=== PATIENT | female | born 1980 | race Caucasian/White ===

== ENCOUNTER 2017-03-19 16:51 | Observation (INO) | payer OTHER ==
[~2017-03-19] VITALS: Ht 157.5 cm; Wt 48.0 kg
[2017-03-19 16:58] VITALS: BP 92/50; PULSE 70; RESP 16; TEMP 98.7; O2SAT 100
[2017-03-19] MEDS ORDERED: SODIUM CHLORID 0.9% 500 ML INJ 500 ML IV ONE ×2 (17:15→18:00)
--- NOTE | 2017-03-19 17:20 | PD ---
HPI Chief Complaint: Cardiac Complaint Time Seen by Provider: 17:06 Travel History International Travel<30 days: No Contact w/Intl Traveler<30days: No Traveled to known affect area: No History of Present Illness HPI 36-year-old female presents to emergency department complaining of chest pain radiating to her left arm and anxiety for about 45 minutes. States her chest pain is sharp and constant. Also says her left arm is numb. Patient states she does feel mildly short of breath and has some nausea. Patient states her pain is 10 out of 10. States that she was feeling anxious and believes she is having a panic attack. Patient states that she was given Librium and clonidine at [facility] which may have lowered her blood pressure. She is here with Marli, staff of [facility]. Patient denies recent travel, injuries, surgeries or any other medical issues. Patient denies any illicit drug use. She is currently taking Suboxone for detox. She is in detox for cocaine use. States she had an episode similar approximately one year ago and they gave her medication that had "an a and a D" and this resolved her symptoms. PFSH Past Medical History Anxiety: Yes Depression: Yes Insomnia: Yes ?: Not LMP: DEPO Past Surgical History Tonsillectomy: Yes Social History Alcohol Use: No Tobacco Use: Yes (1/2 PPD) Substance Use: Yes (HX COCAINE AND SUBOXONE ABUSE) Allergies-Medications (Allergen,Severity, Reaction): Coded Allergies: amoxicillin (Verified Allergy, Severe, Nausea/Vomiting, 03/19/17) azithromycin (Verified Allergy, Severe, Nausea/Vomiting, 03/19/17) clavulanic acid (Verified Allergy, Severe, Nausea/Vomiting, 03/19/17) doxycycline (Verified Allergy, Severe, Nausea/Vomiting, 03/19/17) latex (Verified Allergy, Severe, Rash, 03/19/17) Reported Meds & Prescriptions Reported Meds & Active Scripts Active Reported Trazodone (Trazodone HCl) 100 Mg Tablet 100 Mg PO HS Zoloft (Sertraline HCl) 50 Mg Tab 50 Mg PO DAILY Klonopin (Clonazepam) 0.5 Mg Tab 0.5 Mg PO BID Review of Systems Except as stated in HPI: all other systems reviewed are Neg Physical Exam Narrative GENERAL: Well-developed well-nourished in no apparent distress SKIN: Focused skin assessment warm/dry. HEAD: Atraumatic. Normocephalic. EYES: Pupils equal and round. No scleral icterus. No injection or drainage. ENT: No nasal bleeding or discharge. Mucous membranes pink and moist. NECK: Trachea midline. No JVD. CARDIOVASCULAR: Regular rate and rhythm. No murmur appreciated. RESPIRATORY: No accessory muscle use. Clear to auscultation. Breath sounds equal bilaterally. GASTROINTESTINAL: Abdomen soft, non-tender, nondistended. MUSCULOSKELETAL: No obvious deformities. No clubbing. No cyanosis. No edema. NEUROLOGICAL: Awake and alert. No obvious cranial nerve deficits. 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 Data Data Last Documented VS Vital Signs Date Time Temp Pulse Resp B/P (MAP) Pulse Ox O2 Delivery O2 Flow Rate FiO2 03/19/17 17:36 98 Room Air 03/19/17 17:36 16 03/19/17 16:58 98.7 70 92/50 (64) Orders Orders Electrocardiogram (03/19/17 ) Complete Blood Count With Diff (03/19/17 17:04) Basic Metabolic Panel (Bmp) (03/19/17 17:04) Ckmb (Isoenzyme) Profile (03/19/17 17:04) Troponin I (03/19/17 17:04) Chest, Single Ap (03/19/17 17:04) Iv Access Insert/Monitor (03/19/17 17:04) Ecg Monitoring (03/19/17 17:04) Oxygen Administration (03/19/17 17:04) Oximetry (03/19/17 17:04) Sodium Chlorid 0.9% 500 Ml Inj (Ns 500 M (03/19/17 17:15) Ondansetron Inj (Zofran Inj) (03/19/17 17:30) Sodium Chlorid 0.9% 500 Ml Inj (Ns 500 M (03/19/17 18:00) Cta Thor Abd Aorta W Iv C W3d (03/19/17 ) Iohexol 350 Inj (Omnipaque 350 Inj) (03/19/17 18:30) Ct Brain W/O Iv Contrast(Rout) (03/19/17 ) Admit Order (Ed Use Only) (03/19/17 19:42) Labs Laboratory Tests Test 03/19/17 17:05 White Blood Count 5.2 TH/MM3 Red Blood Count 4.32 MIL/MM3 Hemoglobin 12.1 GM/DL Hematocrit 36.2 % Mean Corpuscular Volume 83.7 FL Mean Corpuscular Hemoglobin 28.0 PG Mean Corpuscular Hemoglobin Concent 33.4 % Red Cell Distribution Width 14.0 % Platelet Count 210 TH/MM3 Mean Platelet Volume 8.0 FL Neutrophils (%) (Auto) 49.2 % Lymphocytes (%) (Auto) 35.6 % Monocytes (%) (Auto) 10.0 % Eosinophils (%) (Auto) 4.5 % Basophils (%) (Auto) 0.7 % Neutrophils # (Auto) 2.5 TH/MM3 Lymphocytes # (Auto) 1.8 TH/MM3 Monocytes # (Auto) 0.5 TH/MM3 Eosinophils # (Auto) 0.2 TH/MM3 Basophils # (Auto) 0.0 TH/MM3 CBC Comment DIFF FINAL Differential Comment Blood Urea Nitrogen 14 MG/DL Creatinine 0.83 MG/DL Random Glucose 64 MG/DL Calcium Level 8.3 MG/DL Sodium Level 141 MEQ/L Potassium Level 3.8 MEQ/L Chloride Level 109 MEQ/L Carbon Dioxide Level 24.6 MEQ/L Anion Gap 7 MEQ/L Estimat Glomerular Filtration Rate 77 ML/MIN Total Creatine Kinase 32 U/L Troponin I LESS THAN 0.02 NG/ML MDM Medical Decision Making Medical Screen Exam Complete: Yes Emergency Medical Condition: Yes Differential Diagnosis Panic attack versus acute MA versus angina versus anxiety CVA vs TIA Narrative Course 36-year-old female presents to emergency department complaining of chest pain radiating to her left arm and anxiety for about 45 minutes. States her chest pain is sharp and constant. Also says her left arm is numb. Patient states she does feel mildly short of breath and has some nausea. Patient states her pain is 10 out of 10. States that she was feeling anxious and believes she is having a panic attack. Patient states that she was given Librium and clonidine at [facility] which may have lowered her blood pressure. She is here with Marli, staff of [facility]. Patient denies recent travel, injuries, surgeries or any other medical issues. Patient denies any illicit drug use. She is currently taking Suboxone for detox. States she had an episode similar approximately one year ago and they gave her medication that had "an a and a D" and this resolved her symptoms. Vital signs- mild hypotension Normal saline bolus Physical exam findings- left arm weakness compared to rght with subjective ' numbness' EKG- noncontributory Labs-blood sugar 64, and she is given by mouth, repeat blood sugar Chest x-ray normal CTA- within normal limits CT Brain pending as of transfer to Dr. Gutiérrez. Admitting Information Admitting Physician Requests: Admit Condition: Stable Marli Mcintyre Mar 19, 2017 17:20
[2017-03-19] MEDS ORDERED: ONDANSETRON HCL 4 MG/2 ML VIAL IV PUSH ONE (17:30)
[2017-03-19 17:36] VITALS: RESP 16; O2SAT 97
--- NOTE | 2017-03-19 17:43 | RADRPT ---
EXAM DATE/TIME: 03/19/2017 17:17 [facility] COMPARISON: No previous studies available for comparison. INDICATIONS : Chest pain. MEDICAL HISTORY : None. SURGICAL HISTORY : None. ENCOUNTER: Initial ACUITY: 1 day PAIN SCORE: 6/10 LOCATION: Left upper chest FINDINGS: A single view of the chest demonstrates the lungs to be symmetrically aerated without evidence of mas s, infiltrate or effusion. The cardiomediastinal contours are unremarkable. Osseous structures are intact. CONCLUSION: Normal examination. Lee Busby MD on March 19, 2017 at 17:42 Board Certified Radiologist. This report was verified electronically.
[2017-03-19 17:55] LABS: AUTOMATED NEUTROPHIL # 2.5 TH/MM3 (1.8-7.7); BASOPHIL % 0.7 % (0.0-2.0); EOSINOPHIL # 0.2 TH/MM3 (0-0.4); EOSINOPHIL % 4.5 % (0.0-4.0); HEMATOCRIT 36.2 % (35.0-46.0); HEMO FLAGS DIFF FINAL; LYMPH % 35.6 % (9.0-44.0); LYMPHOCYTE # 1.8 TH/MM3 (1.0-4.8); MEAN CELL VOLUME 83.7 FL (80.0-100.0); MEAN CORPUSCULAR HGB CONC 33.4 % (32.0-36.0); NEUT % 49.2 % (16.0-70.0); PLATELET COUNT 210 TH/MM3 (150-450); RED BLOOD COUNT 4.32 MIL/MM3 (4.00-5.30); WHITE BLOOD COUNT 5.2 TH/MM3 (4.0-11.0)
[2017-03-19 18:02] LABS: ANION GAP 7 MEQ/L (5-15); BICARBONATE 24.6 MEQ/L (21.0-32.0); BLOOD UREA NITROGEN 14 MG/DL (7-18); CHLORIDE 109 MEQ/L (98-107); GLOMERULAR FILTRATION RATE 77 ML/MIN (>89); POTASSIUM 3.8 MEQ/L (3.5-5.1); SODIUM (NA) 141 MEQ/L (136-145)
[2017-03-19 18:07] LABS: CREATINE KINASE 32 U/L (26-192)
[2017-03-19] MEDS ORDERED: IOHEXOL 350 MG/ML 10 ML VIAL (for RAD DIAG) IVCONTRAST ONE (18:30)
--- NOTE | 2017-03-19 18:52 | RADRPT ---
EXAM DATE/TIME: 03/19/2017 18:17 [facility] COMPARISON: No previous studies available for comparison. INDICATIONS : Chest pain. Left sided weakness. IV CONTRAST: 75 cc Omnipaque 350 (iohexol) IV RADIATION DOSE: 4.01 CTDIvol (mGy) MEDICAL HISTORY : None SURGICAL HISTORY : None. ENCOUNTER: Initial ACUITY: 1 day PAIN SCALE: 6/10 LOCATION: chest TECHNIQUE: Volumetric scanning was performed using a multi-row detector CT scanner. The data was post processed with a variety of visualization algorithms including full volume maximum intensity projection, multi -planar sliding thin slab reformation, curved planar reformation, and surface rendering techniques. Using automated exposure control and adjustment of the mA and/or kV according to patient size, radiat ion dose was kept as low as reasonably achievable to obtain optimal diagnostic quality images. DICOM format image data is available electronically for review and comparison. FINDINGS: LUNGS: There is no consolidation or pneumothorax. No concerning pulmonary nodule is visualized. No pleural fluid is present. MEDIASTINUM: No abnormally enlarged lymph nodes by CT criteria. No axillary or hilar abnormalities are identified. ABDOMEN: The liver and spleen are free of focal defects. The gallbladder and pancreas demonstrate no abnormali ty. The adrenal glands are normal. The kidneys demonstrate no evidence of solid renal mass or hydrone phrosis. No free fluid or abdominal masses are identified. No para-aortic adenopathy is seen. PELVIS: No evidence of free fluid or pelvic mass. No abnormally enlarged inguinal or retroperitoneal lymph no jessika are present. The bladder is unremarkable. THORACIC AORTA: The thoracic aortic root is normal with normal branching of the great vessels. There is no evidence of aneurysm or dissection. ABDOMINAL AORTA: The aorta is normal in caliber without aneurysm or dissection. The renal arteries are patent bilater ally. The proximal celiac and superior mesenteric arteries are patent and normal in diameter. PELVIC VESSELS: The internal iliac and external iliac vessels are patent without aneurysm or stenosis. CONCLUSION: Normal examination. Lee Busby MD on March 19, 2017 at 18:49 Board Certified Radiologist. This report was verified electronically.
--- NOTE | 2017-03-19 19:13 | PD ---
Data Data Last Documented VS Vital Signs Date Time Temp Pulse Resp B/P (MAP) Pulse Ox O2 Delivery O2 Flow Rate FiO2 03/19/17 17:36 98 Room Air 03/19/17 17:36 16 03/19/17 16:58 98.7 70 92/50 (64) Orders Orders Electrocardiogram (03/19/17 ) Electrocardiogram (03/19/17 17:04) Complete Blood Count With Diff (03/19/17 17:04) Basic Metabolic Panel (Bmp) (03/19/17 17:04) Ckmb (Isoenzyme) Profile (03/19/17 17:04) Troponin I (03/19/17 17:04) Chest, Single Ap (03/19/17 17:04) Iv Access Insert/Monitor (03/19/17 17:04) Ecg Monitoring (03/19/17 17:04) Oxygen Administration (03/19/17 17:04) Oximetry (03/19/17 17:04) Sodium Chlorid 0.9% 500 Ml Inj (Ns 500 M (03/19/17 17:15) Ondansetron Inj (Zofran Inj) (03/19/17 17:30) Sodium Chlorid 0.9% 500 Ml Inj (Ns 500 M (03/19/17 18:00) Cta Thor Abd Aorta W Iv C W3d (03/19/17 ) Iohexol 350 Inj (Omnipaque 350 Inj) (03/19/17 18:30) Ct Brain W/O Iv Contrast(Rout) (03/19/17 ) Labs Laboratory Tests Test 03/19/17 17:05 White Blood Count 5.2 TH/MM3 Red Blood Count 4.32 MIL/MM3 Hemoglobin 12.1 GM/DL Hematocrit 36.2 % Mean Corpuscular Volume 83.7 FL Mean Corpuscular Hemoglobin 28.0 PG Mean Corpuscular Hemoglobin Concent 33.4 % Red Cell Distribution Width 14.0 % Platelet Count 210 TH/MM3 Mean Platelet Volume 8.0 FL Neutrophils (%) (Auto) 49.2 % Lymphocytes (%) (Auto) 35.6 % Monocytes (%) (Auto) 10.0 % Eosinophils (%) (Auto) 4.5 % Basophils (%) (Auto) 0.7 % Neutrophils # (Auto) 2.5 TH/MM3 Lymphocytes # (Auto) 1.8 TH/MM3 Monocytes # (Auto) 0.5 TH/MM3 Eosinophils # (Auto) 0.2 TH/MM3 Basophils # (Auto) 0.0 TH/MM3 CBC Comment DIFF FINAL Differential Comment Blood Urea Nitrogen 14 MG/DL Creatinine 0.83 MG/DL Random Glucose 64 MG/DL Calcium Level 8.3 MG/DL Sodium Level 141 MEQ/L Potassium Level 3.8 MEQ/L Chloride Level 109 MEQ/L Carbon Dioxide Level 24.6 MEQ/L Anion Gap 7 MEQ/L Estimat Glomerular Filtration Rate 77 ML/MIN Total Creatine Kinase 32 U/L Troponin I LESS THAN 0.02 NG/ML MDM Supervised Visit with BINA: Yes Narrative Course The history, exam, and medical decision-making in the associated mid-level provider note were completed with my assistance. I reviewed and agree with the findings presented. I attest that I had a [id number] encounter with the patient on the same day, and personally performed and documented my assessment and findings in the medical record. *My assessment and Findings: 36 year-old woman presents to the emergency department complaining of chest pain , states feels similar set anxiety attack in the past, this time associated with left arm numbness and tingling. 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 She looks overall well. Given the chest pain with stroke symptoms, concern for dissection however dissection study is negative. Patient still endorsing left arm weakness. Some concern for stroke. We'll check CT head, plan on admission for further evaluation and MRI. Condition: Stable Pal Tabares MD Mar 19, 2017 19:13
--- NOTE | 2017-03-19 19:36 | RADRPT ---
EXAM DATE/TIME: 03/19/2017 19:27 [facility] COMPARISON: No previous studies available for comparison. INDICATIONS : General weakness. RADIATION DOSE: 50.71 CTDIvol (mGy) MEDICAL HISTORY : Substance abuse. SURGICAL HISTORY : None. ENCOUNTER: Initial ACUITY: 1 day PAIN SCALE: 0/10 LOCATION: cranial TECHNIQUE: Multiple contiguous axial images were obtained of the head. Using automated exposure control and adj ustment of the mA and/or kV according to patient size, radiation dose was kept as low as reasonably a chievable to obtain optimal diagnostic quality images. DICOM format image data is available electro nically for review and comparison. FINDINGS: CEREBRUM: The ventricles are normal for age. No evidence of midline shift, mass lesion, hemorrhage or acute in farction. No extra-axial fluid collections are seen. POSTERIOR FOSSA: The cerebellum and brainstem are intact. The 4th ventricle is midline. The cerebellopontine angle i s unremarkable. EXTRACRANIAL: The visualized portion of the orbits is intact. SKULL: The calvaria is intact. No evidence of skull fracture. CONCLUSION: Normal examination. eLe Busby MD on March 19, 2017 at 19:34 Board Certified Radiologist. This report was verified electronically.
[2017-03-19] MEDS ORDERED: SENNOSIDES 8.6 MG TAB PO PRN (20:00)
[2017-03-19] MEDS ORDERED: BISACODYL 10 MG SUPP RECTAL PRN (20:00)
[2017-03-19] MEDS ORDERED: LACTULOSE SYRUP 20 GM/30 ML CUP PO PRN (20:00)
[2017-03-19] MEDS ORDERED: MAGNESIUM HYDROXIDE SUSP 30 ML CUP PO PRN (20:00)
[2017-03-19] MEDS ORDERED: ONDANSETRON HCL 4 MG/2 ML VIAL IVP PRN (20:00)
[2017-03-19] MEDS ORDERED: ACETAMINOPHEN 325 MG TAB PO PRN (20:00)
--- NOTE | 2017-03-19 20:01 | HHI.HP ---
[facility] Unknown Admission Diagnosis Focal weakness Diagnoses: (1) Chest pain Diagnosis: Principal (2) Left upper extremity numbness Diagnosis: Principal (3) Cocaine abuse Diagnosis: Principal (4) Dehydration Diagnosis: Principal (5) Tobacco abuse Diagnosis: Principal Travel History International Travel<30 Days: No Contact w/Intl Traveler <30 Da: No Traveled to Known Affected Are: No History of Present Illness This is a 36-year-old female with a PMH of Anxiety, Depression, Tobacco Abuse and Cocaine/Suboxone Abuse who was sent to the ER from [facility] for evaluation of chest pain and left arm numbness starting earlier tonight. Reports associated SOB and significant anxiety. On arrival, BP 92/50, HR 70, O2 sat 100% on RA, Afebrile. CBC unremarkable. Chemistry unremarkable except for GFR 67. Troponin 0.02. EKG with no acute ischemia. CXR normal. CTA Aorta normal. CT Head normal. While in the ER, patient with persistent complaints of chest pain and left upper extremity numbness, we were asked to admit for further evaluation. Review of Systems Except as stated in HPI: all other systems reviewed are Neg ROS: 14 point review of systems otherwise negative. Past Family Social History Past Medical History PMH: Anxiety, Depression, Tobacco Abuse and Cocaine/Suboxone Abuse Past Surgical History PAST SURGICAL HISTORY: Tonsillectomy Allergies: Coded Allergies: amoxicillin (Verified Allergy, Severe, Nausea/Vomiting, 03/19/17) azithromycin (Verified Allergy, Severe, Nausea/Vomiting, 03/19/17) clavulanic acid (Verified Allergy, Severe, Nausea/Vomiting, 03/19/17) doxycycline (Verified Allergy, Severe, Nausea/Vomiting, 03/19/17) latex (Verified Allergy, Severe, Rash, 03/19/17) Family History PAST FAMILY HISTORY: Reviewed. No h/o DM or CAD Social History PAST SOCIAL HISTORY: Negative for alcohol. Smokes 1/2ppd. Positive for Cocaine/Suboxone. Physical Exam Vital Signs Vital Signs Date Time Temp Pulse Resp B/P (MAP) Pulse Ox O2 Delivery O2 Flow Rate FiO2 03/19/17 17:36 98 Room Air 03/19/17 17:36 16 97 Room Air 03/19/17 16:58 98.7 70 16 92/50 (70) 100 Physical Exam PE: GENERAL: Middle-aged white female in no acute distress, resting comfortably. HEENT: PERRLA, EOMI. No scleral icterus or conjunctival pallor. No lid lag or facial droop. CARDIOVASCULAR: Regular rate and rhythm. No obvious murmurs to auscultation. No chest tenderness to palpation. RESPIRATORY: No obvious rhonchi or wheezing. Clear to auscultation. Breath sounds equal bilaterally. GASTROINTESTINAL: Abdomen soft, non-tender, nondistended. BS normal. MUSCULOSKELETAL: Extremities without clubbing, cyanosis, or edema. No obvious deformities. NEUROLOGICAL: Awake, alert and oriented x4. No focal neurologic deficits. Moving both upper and lower extremities spontaneously. Left arm weakness 3/5 Laboratory Laboratory Tests Test 03/19/17 17:05 White Blood Count 5.2 Red Blood Count 4.32 Hemoglobin 12.1 Hematocrit 36.2 Mean Corpuscular Volume 83.7 Mean Corpuscular Hemoglobin 28.0 Mean Corpuscular Hemoglobin Concent 33.4 Red Cell Distribution Width 14.0 Platelet Count 210 Mean Platelet Volume 8.0 Neutrophils (%) (Auto) 49.2 Lymphocytes (%) (Auto) 35.6 Monocytes (%) (Auto) 10.0 Eosinophils (%) (Auto) 4.5 Basophils (%) (Auto) 0.7 Neutrophils # (Auto) 2.5 Lymphocytes # (Auto) 1.8 Monocytes # (Auto) 0.5 Eosinophils # (Auto) 0.2 Basophils # (Auto) 0.0 CBC Comment DIFF FINAL Differential Comment Blood Urea Nitrogen 14 Creatinine 0.83 Random Glucose 64 Calcium Level 8.3 Sodium Level 141 Potassium Level 3.8 Chloride Level 109 Carbon Dioxide Level 24.6 Anion Gap 7 Estimat Glomerular Filtration Rate 77 Total Creatine Kinase 32 Troponin I LESS THAN 0.02 Result Diagram: 03/19/17170403/19/171704 Caprini VTE Risk Assessment Caprini VTE Risk Assessment: No/Low Risk (score <= 1) Caprini Risk Assessment Model Point Value = 1 Point Value = 2 Point Value = 3 Point Value = 5 Age 41-60 Minor surgery BMI > 25 kg/m2 Swollen legs Varicose veins or History of unexplained or recurrent spontaneous Oral contraceptives or hormone replacement Sepsis (< 1 month) Serious lung disease, including pneumonia (< 1 month) Abnormal pulmonary function Acute myocardial infarction Congestive heart failure (< 1 month) History of inflammatory bowel disease Medical patient at bed rest Age 61-74 Arthroscopic surgery Major open surgery (> 45 min) Laparoscopic surgery (> 45 min) Malignancy Confined to bed (> 72 hours) Immobilizing plaster cast Central venous access Age >= 75 History of VTE Family history of VTE Factor V Leiden Prothrombin [id number] Lupus anticoagulant Anticardiolipin antibodies Elevated serum homocysteine Heparin-induced thrombocytopenia Other congenital or acquired thrombophilia Stroke (< 1 month) Elective arthroplasty Hip, pelvis, or leg fracture Acute spinal cord injury (< 1 month) Prophylaxis Regimen Total Risk Factor Score Risk Level Prophylaxis Regimen 0-1 Low Early ambulation 2 Moderate Order ONE of the following: *Sequential Compression Device (SCD) *Heparin 5000 units SQ BID 3-4 Higher Order ONE of the following medications: *Heparin 5000 units SQ TID *Enoxaparin/Lovenox 40 mg SQ daily (WT < 150 kg, CrCl > 30 mL/min) *Enoxaparin/Lovenox 30 mg SQ daily (WT < 150 kg, CrCl > 10-29 mL/min) *Enoxaparin/Lovenox 30 mg SQ BID (WT < 150 kg, CrCl > 30 mL/min) AND/OR *Sequential Compression Device (SCD) 5 or more Highest Order ONE of the following medications: *Heparin 5000 units SQ TID (Preferred with Epidurals) *Enoxaparin/Lovenox 40 mg SQ daily (WT < 150 kg, CrCl > 30 mL/min) *Enoxaparin/Lovenox 30 mg SQ daily (WT < 150 kg, CrCl > 10-29 mL/min) *Enoxaparin/Lovenox 30 mg SQ BID (WT < 150 kg, CrCl > 30 mL/min) AND *Sequential Compression Device (SCD) Assessment and Plan Problem List: (1) Chest pain ICD Code: R07.9 - Chest pain, unspecified (2) Left upper extremity numbness ICD Code: R20.0 - Anesthesia of skin (3) Dehydration ICD Code: E86.0 - Dehydration (4) Cocaine abuse ICD Code: F14.10 - Cocaine abuse, uncomplicated (5) Tobacco abuse ICD Code: Z72.0 - Tobacco use Assessment and Plan A/P: 1. Chest Pain: acute onset of chest pain w/ associated anxiety similar to previous Panic Attacks, initial trop negative, EKG w/ no acute ischemia. In light of cocaine abuse and ongoing chest pain, will admit for further evaluation. Telemetry, check serial cardiac enzymes, ASA, Statin. Morphine/ Ativan prn for chest pain. 2. LUE Numbness: w/ associated weakness, ? vasospasm from Cocaine Abuse? CT Head w/ no acute findings. Consult Neurology for further recommendations. 3. Dehydration: GFR 77, IVF for hydration, repeat labs in am. 4. Cocaine Abuse: currently at [facility] for detox. Ativan prn for withdrawal. Clonidine if needed. 5. Tobacco Abuse: Ativan prn, no NicoDerm to avoid vasoconstriction. 6. DVT Prophylaxis: SCD/Teds. 7. Social work for d/c planning as needed. 8. Case discussed w/ ER physician at length. Rosina Alfonso MD Mar 19, 2017 20:01
--- NOTE | 2017-03-19 20:08 | PD ---
Data Data Last Documented VS Vital Signs Date Time Temp Pulse Resp B/P (MAP) Pulse Ox O2 Delivery O2 Flow Rate FiO2 03/19/17 17:36 98 Room Air 03/19/17 17:36 16 03/19/17 16:58 98.7 70 92/50 (64) Orders Orders Electrocardiogram (03/19/17 ) Electrocardiogram (03/19/17 17:04) Complete Blood Count With Diff (03/19/17 17:04) Basic Metabolic Panel (Bmp) (03/19/17 17:04) Ckmb (Isoenzyme) Profile (03/19/17 17:04) Troponin I (03/19/17 17:04) Chest, Single Ap (03/19/17 17:04) Iv Access Insert/Monitor (03/19/17 17:04) Ecg Monitoring (03/19/17 17:04) Oxygen Administration (03/19/17 17:04) Oximetry (03/19/17 17:04) Sodium Chlorid 0.9% 500 Ml Inj (Ns 500 M (03/19/17 17:15) Ondansetron Inj (Zofran Inj) (03/19/17 17:30) Sodium Chlorid 0.9% 500 Ml Inj (Ns 500 M (03/19/17 18:00) Cta Thor Abd Aorta W Iv C W3d (03/19/17 ) Iohexol 350 Inj (Omnipaque 350 Inj) (03/19/17 18:30) Ct Brain W/O Iv Contrast(Rout) (03/19/17 ) Admit Order (Ed Use Only) (03/19/17 19:42) Labs Laboratory Tests Test 03/19/17 17:05 White Blood Count 5.2 TH/MM3 Red Blood Count 4.32 MIL/MM3 Hemoglobin 12.1 GM/DL Hematocrit 36.2 % Mean Corpuscular Volume 83.7 FL Mean Corpuscular Hemoglobin 28.0 PG Mean Corpuscular Hemoglobin Concent 33.4 % Red Cell Distribution Width 14.0 % Platelet Count 210 TH/MM3 Mean Platelet Volume 8.0 FL Neutrophils (%) (Auto) 49.2 % Lymphocytes (%) (Auto) 35.6 % Monocytes (%) (Auto) 10.0 % Eosinophils (%) (Auto) 4.5 % Basophils (%) (Auto) 0.7 % Neutrophils # (Auto) 2.5 TH/MM3 Lymphocytes # (Auto) 1.8 TH/MM3 Monocytes # (Auto) 0.5 TH/MM3 Eosinophils # (Auto) 0.2 TH/MM3 Basophils # (Auto) 0.0 TH/MM3 CBC Comment DIFF FINAL Differential Comment Blood Urea Nitrogen 14 MG/DL Creatinine 0.83 MG/DL Random Glucose 64 MG/DL Calcium Level 8.3 MG/DL Sodium Level 141 MEQ/L Potassium Level 3.8 MEQ/L Chloride Level 109 MEQ/L Carbon Dioxide Level 24.6 MEQ/L Anion Gap 7 MEQ/L Estimat Glomerular Filtration Rate 77 ML/MIN Total Creatine Kinase 32 U/L Troponin I LESS THAN 0.02 NG/ML MDM Medical Record Reviewed: Yes Supervised Visit with BINA: Yes Interpretation(s) Last Impressions Chest X-Ray 03/19/17 1704 Signed Impressions: Service Date/Time: Sunday, March 19, 2017 17:17 - CONCLUSION: Normal examination. Lee Busby MD Head CT 03/19/17 0000 Signed Impressions: Service Date/Time: Sunday, March 19, 2017 19:27 - CONCLUSION: Normal examination. Lee Busby MD Aorta CTA 03/19/17 0000 Signed Impressions: Service Date/Time: Sunday, March 19, 2017 18:17 - CONCLUSION: Normal examination. Lee Busby MD Narrative Course During the course of the patients emergency department visit, the patients history, examination, and differential diagnosis were reviewed with the patient. The patient was placed on a scrap collector with oximetry and frequent blood pressure monitoring. The patient had IV access obtained and blood work sent for analysis. The patient's case was checked out to me by Sarah. Please see her complete history and physical. The patient's case had been discussed with the admitting physicians, however the admitting physician recommended that a CT scan of the brain be done as well as a repeat blood sugar prior to the admission. The patient reportedly presented with chest pain and left upper extremity numbness, tingling, weakness. The patients laboratory studies were reviewed and remarkable for a white count of 5.2, hemoglobin 12.1, platelets 210 with 10 monocytes, basic metabolic profile is remarkable for a chloride of 109, glucose 64 which was repeated and noted to be 90 at the bedside, CPK 32, troponin I less than 0.02. Radiology studies were reviewed and remarkable for a chest x-ray that shows no acute cardiopulmonary disease. CTA of the aorta rules out dissection or any other acute abnormality of the aorta. CT scan of the brain showed a normal examination according to the reading radiologist. The patients results were discussed with the patient, including the plan of care. I explained that further testing and/ or monitoring is indicated based on the patients history, examination, and/ or laboratory findings. Therefore, I recommended admission for additional evaluation. The patient expressed understanding and was agreeable with this plan. The patient was admitted to the hospital in stable condition and sent to a bed under the care of the [facility]. Diagnosis Primary Impression: Chest pain, rule out acute myocardial infarction Additional Impression: Focal neurological deficit Admitting Information Admitting Physician Requests: Observation Condition: Stable Sushila Gutiérrez MD Mar 19, 2017 20:08
[2017-03-19] MEDS: SODIUM CHLOR 0.9% 1000 ML INJ 1,000 ML IV SCH (20:41)
[2017-03-19] MEDS: DOCUSATE SODIUM 50 MG/SENNA 8.6 MG TAB PO SCH (21:00)
[2017-03-19] MEDS: SODIUM CHLORIDE 0.9% FLUSH 10 ML FLUSH IV FLUSH SCH (23:19)
[2017-03-19] MEDS: MORPHINE SULFATE 2 MG/ML INJ IV PRN (23:19)
[2017-03-19 23:28] VITALS: BP 108/60; PULSE 71; RESP 18; TEMP 98; O2SAT 100
[2017-03-19] MEDS ORDERED: ZOLO50TA PO (23:35)
[2017-03-19] MEDS ORDERED: CLON.5 PO (23:35)
[2017-03-19] MEDS ORDERED: TRAZ100T10 PO (23:35)
[2017-03-19 23:52] VITALS: PULSE 70
[2017-03-20] VITALS (10 sets, daily range): BP systolic 84–119; BP diastolic 51–64; PULSE 56–85; RESP 16; TEMP 98–98.4; O2SAT 98–99
[2017-03-20 01:15] LABS: AUTOMATED NEUTROPHIL # 1.6 TH/MM3 (1.8-7.7); BASOPHIL % 0.5 % (0.0-2.0); EOSINOPHIL # 0.2 TH/MM3 (0-0.4); EOSINOPHIL % 4.8 % (0.0-4.0); HEMATOCRIT 31.6 % (35.0-46.0); HEMO FLAGS DIFF FINAL; LYMPH % 47.5 % (9.0-44.0); LYMPHOCYTE # 2.1 TH/MM3 (1.0-4.8); MEAN CELL VOLUME 82.6 FL (80.0-100.0); MEAN CORPUSCULAR HEMOGLOBIN 27.4 PG (27.0-34.0); MEAN CORPUSCULAR HGB CONC 33.2 % (32.0-36.0); MONO % 11.5 % (0.0-8.0); NEUT % 35.7 % (16.0-70.0); PLATELET COUNT 187 TH/MM3 (150-450); RED BLOOD COUNT 3.82 MIL/MM3 (4.00-5.30); RED CELL DISTRIBUTION WIDTH 13.8 % (11.6-17.2); WHITE BLOOD COUNT 4.5 TH/MM3 (4.0-11.0)
[2017-03-20 01:30] LABS: ALT (GPT) 15 U/L (10-53); ANION GAP 9 MEQ/L (5-15); AST (GOT) 6 U/L (15-37); BICARBONATE 22.5 MEQ/L (21.0-32.0); CHLORIDE 112 MEQ/L (98-107); GLOMERULAR FILTRATION RATE 106 ML/MIN (>89); SODIUM (NA) 143 MEQ/L (136-145)
[2017-03-20 01:34] LABS: ALKALINE PHOSPHATASE 63 U/L (45-117); BLOOD UREA NITROGEN 10 MG/DL (7-18); TOTAL BILIRUBIN ADULT 0.1 MG/DL (0.2-1.0)
[2017-03-20 08:41] LABS: CALCIUM-PROTEIN CORRECTED 8.6 MG/DL (8.5-10.1)
[2017-03-20] MEDS: SODIUM CHLORIDE 0.9% FLUSH 10 ML FLUSH IV FLUSH SCH ×2 (08:46→20:33)
[2017-03-20] MEDS: SODIUM CHLOR 0.9% 1000 ML INJ 1,000 ML IV SCH ×2 (08:46→16:21)
[2017-03-20] MEDS: SERTRALINE HCL 50 MG TAB PO SCH (08:47)
[2017-03-20] MEDS: ASPIRIN EC 81 MG TABEC PO SCH (08:47)
[2017-03-20] MEDS: DOCUSATE SODIUM 50 MG/SENNA 8.6 MG TAB PO SCH ×2 (08:48→20:33)
[2017-03-20] MEDS: clonazePAM 0.5 MG TAB PO SCH ×2 (08:48→20:33)
[2017-03-20] MEDS: MORPHINE SULFATE 2 MG/ML INJ IV PRN ×4 (09:04→21:26)
[2017-03-20] MEDS: SODIUM CHLORIDE 0.9% FLUSH 10 ML FLUSH IV FLUSH PRN ×3 (09:04→18:12)
[2017-03-20 09:06] LABS: HDL CHOLESTEROL 52.5 MG/DL (40.0-60.0); LDL CHOLESTEROL 52 MG/DL (0-99)
[2017-03-20 12:14] LABS: BLOOD, URINE NEG (NEG); GLUCOSE,URINE NEG (NEG); HYALINE CAST, URINE 1 /lpf (RARE); KETONE, URINE NEG (NEG); NITRITE,URINE NEG (NEG); SQUAMOUS EPITHELIAL CELL URINE 2 /hpf (0-5); URINE COLOR LIGHT-YELLOW (YELLW/STRAW)
[2017-03-20 12:18] LABS: COMMENT (UR) CULT NOT INDICATED; CULTURE IF INDICATED CULT NOT INDICATED
--- NOTE | 2017-03-20 12:44 | MB ---
cc: MELANY KIRKPATRICK M.D. DATE OF CONSULTATION: 03/20/2017 DATE OF : 1980 REASON FOR CONSULTATION Left arm weakness. HISTORY OF PRESENT ILLNESS The patient is a 36-year-old woman with history of anxiety, depression, apparently started to experience some numbness of her left arm with chest pain. She thinks that maybe she had fallen on it when her chest pain became severe. Admits to some mild neck pain and some shoulder pain but states that she cannot feel her left arm. She was sent to the ER from [facility]. She has a history of abuse of cocaine, I believe she is on Suboxone. Currently she is not complaining to me about any chest pain. She states her left arm, she cannot feel it from the left shoulder down. She can lift it antigravity. 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 PAST MEDICAL HISTORY She has a past medical history as stated of: 1. Anxiety. 2. Depression. 3. Cocaine, Suboxone abuse. 4. Tobacco abuse. ALLERGIES AMOXICILLIN, AZITHROMYCIN, CLAVULANIC ACID, DOXYCYCLINE, LATEX. FAMILY HISTORY Noncontributory. SOCIAL HISTORY Denies alcohol, smokes half pack a day. Positive cocaine and Suboxone abuse. PHYSICAL EXAMINATION VITAL SIGNS: Temperature is 98.1, pulse 73, respiratory rate 16, blood pressure 109/58, sating at 99% on room air. NECK: Neck is supple. She has full range of motion. No carotid bruits. HEART: Regular. NEURO: Pupils are reactive. Visual arrington are full. Her face is symmetrical. Tongue midline. Right side intact. 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 Left arm antigravity but she has some give-way resistance proximally distally. She states she cannot squeeze. She states she cannot feel me touching her left arm. There is no Enrike's sign. Reflexes are trace to 1+. DTRs are symmetrical lower extremities. No leg lag. Toes downgoing. Gait is withheld. LABORATORY DATA Hemoglobin is 10.5 today. Chemistries are reviewed, cholesterol 112, LDL 52, HDL 52.5, triglycerides 40, TSH 2.240 and calcium 7.6. Toxicology is pending. Urine is pending. IMAGING STUDIES Chest x-ray is normal. Aorta CTA is normal. CT head is normal. She had an evaluation by physical therapy this morning. They did not recommend inpatient rehab. They did find that she had no sensation in the left upper extremity but had pain in her tubercular groove with palpation. She had full use of her left arm. IMPRESSION Left arm numbness, etiology unknown. Recommend just for completion given the history, unclear fall, I am going to go ahead and get an MRI of her brain and C-spine. If those are both unremarkable, then she can to some outpatient PT and have her follow up with ortho for her shoulder. Continue current care per primary team. I will go ahead and get the imaging of the brain and C-spine. MD TATIANA Barton/AUDREY /12:19 PM /12:29 PM
--- NOTE | 2017-03-20 14:44 | HHI.PR ---
Subjective Remarks Patient reported still feeling chest pain about 6 out of 10 with numbness in her left arm She stated she is not able to move her arm however when I do passive range of motion and then leave the arm all of a sudden, the arm does not dropped but she landed on her side!! Objective Vitals Vital Signs Date Time Temp Pulse Resp B/P (MAP) Pulse Ox O2 Delivery O2 Flow Rate FiO2 03/20/17 12:02 98.1 73 16 109/58 (75) 99 03/20/17 09:30 98.0 77 16 103/51 (68) 99 03/20/17 04:35 56 03/19/17 23:52 70 03/19/17 23:28 98.0 71 18 108/60 (76) 100 03/19/17 17:36 98 Room Air 03/19/17 17:36 16 97 Room Air 03/19/17 16:58 98.7 70 16 92/50 (64) 100 I/O 03/19/17 03/19/17 03/19/17 03/20/17 03/20/17 03/20/17 07:00 15:00 23:00 07:00 15:00 23:00 Intake Total 500 ml 240 ml Balance 500 ml 240 ml Intake Oral 240 ml IV Total 500 ml # Voids 1 Result Diagram: 03/20/17 0100 03/20/17 0100 Objective Remarks GENERAL: This is a well-nourished, well-developed patient, in no apparent distress. SKIN: No rashes, warm and dry HEAD: Atraumatic. Normocephalic. EYES: Pupils equal round and reactive. Extraocular motions intact. No scleral icterus. ENT: Nose without bleeding, or drainage, Airway patent. NECK: Trachea midline. Supple CARDIOVASCULAR: Regular rate and rhythm 2 to 3/6 systolic murmur RESPIRATORY: Fair air entry bilaterally. No wheezes, rales, or rhonchi. GASTROINTESTINAL: Abdomen soft, non-tender, nondistended. Positive bowel sounds MUSCULOSKELETAL: Extremities without clubbing, cyanosis, or edema. Pedal pulses appreciated NEUROLOGICAL: Awake and alert. Moves all extremity. Normal speech.no focal neurological deficit A/P Problem List: (1) Chest pain ICD Code: R07.9 - Chest pain, unspecified (2) Left upper extremity numbness ICD Code: R20.0 - Anesthesia of skin (3) Dehydration ICD Code: E86.0 - Dehydration (4) Cocaine abuse ICD Code: F14.10 - Cocaine abuse, uncomplicated (5) Tobacco abuse ICD Code: Z72.0 - Tobacco use Assessment and Plan 03/20: Appreciate neurology consultation neuro ordered C-spine CT and MRI of the brain, I will order CT scan to rule out any underlying cardiac history even though unlikely to be cardiac. 1. Chest Pain: acute onset of chest pain w/ associated anxiety similar to previous Panic Attacks, initial trop negative, EKG w/ no acute ischemia. In light of cocaine abuse and ongoing chest pain, will admit for further evaluation. Telemetry, check serial cardiac enzymes, ASA, Statin. Morphine/ Ativan prn for chest pain. 2. LUE pain and Numbness: w/ associated weakness, ? vasospasm from Cocaine Abuse? CT Head w/ no acute findings. Consult Neurology for further recommendations. 3. Dehydration: GFR 77, IVF for hydration, repeat labs in am. 4. Cocaine Abuse: currently at [facility] for detox. Ativan prn for withdrawal. Clonidine if needed. 5. Tobacco Abuse: Ativan prn, no NicoDerm to avoid vasoconstriction. 6. DVT Prophylaxis: SCD/Teds. Jose Rodriguez MD Mar 20, 2017 14:44
--- NOTE | 2017-03-20 15:19 | EKG ---
Date Performed: 03/19/2017 Time Performed: 17:00:19 PTAGE: 36 years EKG: Sinus rhythm POSSIBLE RIGHT VENTRICULAR CONDUCTION DELAY BORDERLINE ECG INTERPRETATION BASED ON A DEFAULT AGE OF 39 YEARS NO PREVIOUS TRACING DOCTOR: Melvin De Leon Interpretating Date/Time 03/20/2017 15:17:45
--- NOTE | 2017-03-20 16:31 | RADRPT ---
EXAM DATE/TIME: 03/20/2017 14:50 [facility] COMPARISON: No previous studies available for comparison. INDICATIONS : Left arm numbness after fall. MEDICAL HISTORY : None. SURGICAL HISTORY : Tonsillectomy. ENCOUNTER: Initial ACUITY: 2 day PAIN SCORE: 4/10 LOCATION: neck TECHNIQUE: Multiplanar, multisequence MRI examination of the cervical spine was performed. FINDINGS: Sagittal images demonstrate normal vertebral body alignment and curvature. No focal areas of marrow r eplacement are identified. The craniocervical junction appears normal. The cord itself is normal in c aliber and signal intensity. Axial images were performed from C2-3 through C7-T1. There is a hemangio ma in the vertebral body at C7. C2-C3: There is facet arthritis on the left side moderately narrowing the foramen and compromising the nerve exit zone. There is no significant spinal canal stenosis. C3-C4: No significant abnormalities identified. C4-C5: No significant abnormalities identified. C5-C6: No significant abnormalities identified. C6-C7: No significant abnormalities identified. C7-T1: No significant abnormalities identified. CONCLUSION: 1. No evidence of disc protrusion or spinal canal stenosis. 2. Facet arthritis on the left at C2-C3 moderately narrowing the neural foramen Fransisco Seymour MD on March 20, 2017 at 16:26 Board Certified Radiologist. This report was verified electronically.
--- NOTE | 2017-03-20 17:03 | RADRPT ---
EXAM DATE/TIME: 03/20/2017 14:50 [facility] COMPARISON: CT BRAIN W/O CONTRAST, March 19, 2017, 19:27. INDICATIONS : Left arm numbness. MEDICAL HISTORY : None. SURGICAL HISTORY : Tonsillectomy. ENCOUNTER: Initial ACUITY: 2 day PAIN SCORE: 0/10 LOCATION: head TECHNIQUE: Multiplanar, multisequence MRI of the brain was performed without contrast. FINDINGS: CEREBRUM: The ventricles are normal. No evidence of midline shift, mass lesion, hemorrhage or acute infarction . No extraaxial fluid collections are seen. The pituitary gland and suprasellar cistern are normal in configuration. WHITE MATTER: No significant signal abnormalities are seen in the white matter. POSTERIOR FOSSA: The cerebellum and brainstem demonstrate no abnormality. The 4th ventricle is midline. The cerebello pontine angle is unremarkable. The cerebellar tonsils are normal in position. DIFFUSION IMAGING: No focal areas of restricted diffusion are seen. No evidence of acute infarction. EXTRACRANIAL: The visualized portions of the orbits and paranasal sinuses are unremarkable. CONCLUSION: Negative noncontrast MRI. Dmitri Quispe MD on March 20, 2017 at 16:58 Board Certified Radiologist. This report was verified electronically.
[2017-03-20] MEDS: LORazepam 2 MG/ML VIAL IV PUSH PRN (18:12)
[2017-03-20] MEDS ORDERED: traZODone HCL 100 MG TAB PO SCH (21:00)
[2017-03-21] VITALS (8 sets, daily range): BP systolic 94–116; BP diastolic 49–68; PULSE 57–71; RESP 16–20; TEMP 97.7–98.4; O2SAT 95–99
[2017-03-21] MEDS: SODIUM CHLOR 0.9% 1000 ML INJ 1,000 ML IV SCH ×2 (02:00→12:00)
[2017-03-21] MEDS: MORPHINE SULFATE 2 MG/ML INJ IV PRN ×3 (02:56→14:57)
[2017-03-21] MEDS: LORazepam 2 MG/ML VIAL IV PUSH PRN ×2 (04:23→16:18)
[2017-03-21] MEDS: SODIUM CHLORIDE 0.9% FLUSH 10 ML FLUSH IV FLUSH SCH (08:30)
[2017-03-21] MEDS: clonazePAM 0.5 MG TAB PO SCH (08:30)
[2017-03-21] MEDS: SERTRALINE HCL 50 MG TAB PO SCH (08:30)
[2017-03-21] MEDS: ASPIRIN EC 81 MG TABEC PO SCH (08:30)
[2017-03-21] MEDS: DOCUSATE SODIUM 50 MG/SENNA 8.6 MG TAB PO SCH (08:30)
--- NOTE | 2017-03-21 12:23 | HHI.PR ---
Subjective Remarks Patient still complaining of numbness and weakness in her left arm my discussed with the physical therapist most likely she has tendinitis versus bursitis in her left shoulder, will do a treadmill stress test and MRI of her left shoulder to rule out any underlying issues if those are negative patient need to follow up with her primary care Objective Vitals Vital Signs Date Time Temp Pulse Resp B/P (MAP) Pulse Ox O2 Delivery O2 Flow Rate FiO2 03/21/17 11:25 98.4 68 16 116/65 (82) 99 03/21/17 08:00 57 03/21/17 07:05 97.7 63 16 94/49 (64) 99 03/21/17 03:41 66 03/21/17 03:04 98.4 63 17 100/49 (66) 99 03/21/17 00:30 58 03/20/17 23:08 98.4 73 16 84/53 (63) 98 03/20/17 20:28 98.1 71 16 107/52 (70) 99 03/20/17 20:10 85 03/20/17 17:45 98.0 69 16 119/64 (82) 99 03/20/17 16:10 74 I/O 03/20/17 03/20/17 03/20/17 03/21/17 03/21/17 03/21/17 07:00 15:00 23:00 07:00 15:00 23:00 Intake Total 240 ml 800 ml Balance 240 ml 800 ml Intake Oral 240 ml IV Total 800 ml # Voids 1 1 Result Diagram: 03/20/17 01003/20/17 0100 Objective Remarks GENERAL: This is a well-nourished, well-developed patient, in no apparent distress. SKIN: No rashes, warm and dry HEAD: Atraumatic. Normocephalic. EYES: Pupils equal round and reactive. Extraocular motions intact. No scleral icterus. ENT: Nose without bleeding, or drainage, Airway patent. NECK: Trachea midline. Supple CARDIOVASCULAR: Regular rate and rhythm 2 to 3/6 systolic murmur RESPIRATORY: Fair air entry bilaterally. No wheezes, rales, or rhonchi. GASTROINTESTINAL: Abdomen soft, non-tender, nondistended. Positive bowel sounds MUSCULOSKELETAL: Extremities without clubbing, cyanosis, or edema. Pedal pulses appreciated NEUROLOGICAL: Awake and alert. Moves all extremity. Normal speech.no focal neurological deficit A/P Problem List: (1) Chest pain ICD Code: R07.9 - Chest pain, unspecified (2) Left upper extremity numbness ICD Code: R20.0 - Anesthesia of skin (3) Dehydration ICD Code: E86.0 - Dehydration (4) Cocaine abuse ICD Code: F14.10 - Cocaine abuse, uncomplicated (5) Tobacco abuse ICD Code: Z72.0 - Tobacco use Assessment and Plan 03/20: Appreciate neurology consultation neuro ordered C-spine CT and MRI of the brain, I will order CT scan to rule out any underlying cardiac history even though unlikely to be cardiac. 03/21: C-spine MRI unremarkable except for facet arthritis in C2-C3 otherwise negative, I discussed with the PT patient able to do abduction 120 up to 180, with tenderness, possibly bicipital tendinitis versus for bursitis, will do MRI of the left shoulder, and stress test, patient can be discharged later if those are negative to follow up as an outpatient A/P: 1. Chest Pain: acute onset of chest pain w/ associated anxiety similar to previous Panic Attacks, initial trop negative, EKG w/ no acute ischemia. In light of cocaine abuse and ongoing chest pain, will admit for further evaluation. Telemetry, check serial cardiac enzymes, ASA, Statin. Morphine/ Ativan prn for chest pain. 2. LUE pain and Numbness: w/ associated weakness, ? vasospasm from Cocaine Abuse? CT Head w/ no acute findings. Consult Neurology for further recommendations. 3. Dehydration: GFR 77, IVF for hydration, repeat labs in am. 4. Cocaine Abuse: currently at [facility] for detox. Ativan prn for withdrawal. Clonidine if needed. 5. Tobacco Abuse: Ativan prn, no NicoDerm to avoid vasoconstriction. 6. DVT Prophylaxis: SCD/Teds. Jose Rodriguez MD Mar 21, 2017 12:23
--- NOTE | 2017-03-21 12:53 | RADRPT ---
EXAM DATE/TIME: 03/21/2017 12:22 [facility] COMPARISON: No previous studies available for comparison. INDICATIONS : Left sided pain after fall. MEDICAL HISTORY : None. SURGICAL HISTORY : Tonsillectomy. ENCOUNTER: Initial ACUITY: 2 day PAIN SCORE: 4/10 LOCATION: Left shoulder TECHNIQUE: Multiplanar, multisequence MRI examination was performed without contrast. FINDINGS: ROTATOR CUFF: The supraspinatus, infraspinatus, subscapularis, and teres minor tendons are intact. LABRUM: Labrum is within normal limits. MARROW/CARTILAGE: Bone marrow signal is homogeneous. Glenohumeral joint articular cartilage is within normal limits. OTHER: Acromioclavicular joint is within normal limits. Acromion is Type 1 (flat). Proximal biceps tendon is intact. CONCLUSION: Normal examination. Pal Mathews MD on March 21, 2017 at 12:50 Board Certified Radiologist. This report was verified electronically.
--- NOTE | 2017-03-21 13:56 | HHI.DS ---
Discharge Summary Admission Date Mar 19, 2017 at 19:43 Admitting Diagnosis Focal weakness (1) Chest pain ICD Code: R07.9 - Chest pain, unspecified (2) Left upper extremity numbness ICD Code: R20.0 - Anesthesia of skin (3) Dehydration ICD Code: E86.0 - Dehydration (4) Cocaine abuse ICD Code: F14.10 - Cocaine abuse, uncomplicated (5) Tobacco abuse ICD Code: Z72.0 - Tobacco use Procedures Stress test treadmill Brief History - From Admission This is a 36-year-old female with a PMH of Anxiety, Depression, Tobacco Abuse and Cocaine/Suboxone Abuse who was sent to the ER from [facility] for evaluation of chest pain and left arm numbness starting earlier tonight. Reports associated SOB and significant anxiety. On arrival, BP 92/50, HR 70, O2 sat 100% on RA, Afebrile. CBC unremarkable. Chemistry unremarkable except for GFR 67. Troponin 0.02. EKG with no acute ischemia. CXR normal. CTA Aorta normal. CT Head normal. While in the ER, patient with persistent complaints of chest pain and left upper extremity numbness, we were asked to admit for further evaluation. CBC/BMP: 03/20/17 0100 03/20/17 0100 Significant Findings Laboratory Tests Test 03/19/17 17:05 03/20/17 01:00 03/20/17 11:10 03/20/17 11:30 Monocytes (%) (Auto) 10.0 % (0.0-8.0) 11.5 % (0.0-8.0) Eosinophils (%) (Auto) 4.5 % (0.0-4.0) 4.8 % (0.0-4.0) Random Glucose 64 MG/DL (74-106) Calcium Level 8.3 MG/DL (8.5-10.1) 7.6 MG/DL (8.5-10.1) Chloride Level 109 MEQ/L (98-107) 112 MEQ/L (98-107) Estimat Glomerular Filtration Rate 77 ML/MIN (>89) Troponin I LESS THAN 0.02 NG/ML LESS THAN 0.02 NG/ML LESS THAN 0.02 NG/ML Red Blood Count 3.82 MIL/MM3 (4.00-5.30) Hemoglobin 10.5 GM/DL (11.6-15.3) Hematocrit 31.6 % (35.0-46.0) Lymphocytes (%) (Auto) 47.5 % (9.0-44.0) Neutrophils # (Auto) 1.6 TH/MM3 (1.8-7.7) Total Protein 5.3 GM/DL (6.4-8.2) Albumin 2.7 GM/DL (3.4-5.0) Aspartate Amino Transf (AST/SGOT) 6 U/L (15-37) Total Bilirubin 0.1 MG/DL (0.2-1.0) Triglycerides Level 40 MG/DL (42-150) Cholesterol Level 112 MG/DL (120-200) Urine Leukocyte Esterase SMALL (NEG) Urine Benzodiazepines Screen POS (NEG) Urine Cocaine Screen POS (NEG) PE at Discharge GENERAL: This is a well-nourished, well-developed patient, in no apparent distress. SKIN: No rashes, warm and dry HEAD: Atraumatic. Normocephalic. EYES: Pupils equal round and reactive. Extraocular motions intact. No scleral icterus. ENT: Nose without bleeding, or drainage, Airway patent. NECK: Trachea midline. Supple CARDIOVASCULAR: Regular rate and rhythm 2 to 3/6 systolic murmur RESPIRATORY: Fair air entry bilaterally. No wheezes, rales, or rhonchi. GASTROINTESTINAL: Abdomen soft, non-tender, nondistended. Positive bowel sounds MUSCULOSKELETAL: Extremities without clubbing, cyanosis, or edema. Pedal pulses appreciated NEUROLOGICAL: Awake and alert. Moves all extremity. Normal speech.no focal neurological deficit Hospital Course Patient admitted for neuro and Cardiac workup, neurology consulted, MRI of the brain and C-spine has been done EEG, she also had dehydration which improved with iv fluids, extensive counseling about cocaine abstinence. Stress test has been done, patient discharged to follow up with her primary care Discharge Time: > 30 minutes Discharge Instructions New Medications: Meloxicam (Mobic) 15 Mg Tab 15 MG PO DAILY for 15 Days, #15 TAB [address] (Aspirin DR) 81 Mg Tabdr 81 MG PO DAILY for prophylactic, #30 TAB Continued Medications: Clonazepam (Klonopin) 0.5 Mg Tab 0.5 MG PO BID, #60 TAB 0 Refills Sertraline (Zoloft) 50 Mg Tab 50 MG PO DAILY, #30 TAB 0 Refills Trazodone (Trazodone) 100 Mg Tablet 100 MG PO HS for Control Depression, #30 TAB 0 Refills Jose Rodriguez MD Mar 21, 2017 13:56
[2017-03-21] MEDS ORDERED: MOBI15TA PO (13:59)
[2017-03-21] MEDS ORDERED: ECASA81 PO (13:59)
--- NOTE | 2017-03-21 16:57 | TR ---
Date Performed: 03/21/2017 Time Performed: 13:40:49 DOCTOR: Naima Simon DRUG LIST: CLINICAL HISTORY: REASON FOR TEST: REASON FOR ENDING: OBSERVATION: CONCLUSION: XIMENA PROTOCOL NO CP. TEST STOPPED AFTER EXCEEDING GOAL HR SECONDARY TO SOB AND LEG FATIGUE.Maximum RH=952 % Max HR Achieved=88.0% Maximum BD=656/64 Total Exercise Time=10:01 COMMENTS:
--- NOTE | 2017-03-21 18:09 | EKG ---
Date Performed: 03/20/2017 Time Performed: 07:46:46 PTAGE: 36 years EKG: Sinus rhythm Borderline right ventricular conduction delay T-wave inversions in the anteroseptal leads more promi nent compared to the prior tracing Cannot exclude ischemia PREVIOUS TRACING 03/19/17 DOCTOR: Shayan Gutiérrez Interpretating Date/Time 03/21/2017 18:07:54
== END 2017-03-21 18:42 | disposition home or self-care (01) ==
LOC: NEPE 16:51 → NEDA 19:43 → NEPGCP 21:42
PROVIDERS: ADMIT Hospitalist; ATTEND Hospitalist
DX: R07.9 Chest pain, unspecified (principal); R20.0 Anesthesia of skin; E86.0 Dehydration; F14.10 Cocaine abuse, uncomplicated; R06.02 Shortness of breath; R11.0 Nausea; I95.9 Hypotension, unspecified; M54.2 Cervicalgia; F32.9 Major depressive disorder, single episode, unspecified; F41.1 Generalized anxiety disorder; F17.200 Nicotine dependence, unspecified, uncomplicated
CPT/HCPCS: 70450; 70551; 71010; 71275; 72141; 73221; 74174; 80048; 80053; 80061; 80307; 81001; 82550; 84155; 84443; 84484; 85025; 93005; 93017; 96361; 96374; 96375; 96376; 97161; 97530; 99285; G0378; G8987; G8988; J2060; J2270; J2405; J7030; J7040; Q9967